=== PATIENT | female | born 1995 | race Caucasian/White ===

== ENCOUNTER → 2017-04-23 | Outpatient (CLI) | payer BC, OTHER ==
[~2017-04-23] MED LIST: BIRTH CONTROL
--- NOTE | 2017-04-23 15:59 | RAD ---
INDICATION: Pelvic pain and bleeding COMPARISON: None. TECHNIQUE: Grayscale and color ultrasound images uterus and adnexa. Transabdominal and transvaginal images obtained. FINDINGS: Uterus: 70 x 55 x 38 cm. Endometrial Stripe: 3 mm. Right Ovary: 25 x 25 x 19 cm. Flow Identified. Left Ovary: 28 x 20 x 20 cm. Flow Identified. There is some free fluid within the cul-de-sac. This is commonly seen in female patients. IMPRESSION: 1. Vascular flow seen to the bilateral ovaries. 2. Endometrial stripe is not thickened.
== END | disposition home or self-care (01) ==
LOC: US 14:41
PROVIDERS: ATTEND Obstetrics & Gynecology
DX: N93.9 Abnormal uterine and vaginal bleeding, unspecified (principal)
CPT/HCPCS: 76830; 76856

== ENCOUNTER 2017-09-21 23:28 | Emergency (ER) | payer BC ==
[~2017-09-21] VITALS: Ht 175.3 cm; Wt 66.7 kg
--- NOTE | 2017-09-21 23:34 | ED.ADGEN ---
Past History Past Medical History: Other Past Surgical History: Other Smoking: Non-smoker Alcohol Use: None Drug Use: None Adult General Chief Complaint Chief Complaint " I was working.. and display fell into me and I fell injuring my right wrist and hand.." HPI HPI Patient is a 22 year old female who presents with above hx and injury Rt wrist. Right wrist was first hyperextended as the display fell and then hyper flexed as she fell. Other injury reported. Distal neurovascular intact. Capillary refill less 2 seconds. Patient may have fractured this wrist previously. She is right-hand dominant. Range of motion exacerbated pain. Loading of thumb exacerbated pain Review of Systems Review of Systems Constitutional: Denies fever or chills [] Eyes: Denies change in visual acuity, redness, or eye pain [] HENT: Denies nasal congestion or sore throat [] Respiratory: Denies cough or shortness of breath [] Cardiovascular: No additional information not addressed in HPI [] GI: Denies abdominal pain, nausea, vomiting, bloody stools or diarrhea [] : Denies dysuria or hematuria [] Musculoskeletal: Denies back pain. Complaints of right wrist pain Integument: Denies rash or skin lesions [] Neurologic: Denies headache, focal weakness or sensory changes [] Endocrine: Denies polyuria or polydipsia [] All other systems were reviewed and found to be within normal limits, except as documented in this note. Family History Family History Noncontributory Current Medications Current Medications Current Medications Medications (Trade) Dose Ordered Sig/[place] Start Time Stop Time Status Last Admin Dose Admin Ibuprofen (Motrin) 600 mg 1X ONCE 09/22/17 01:00 09/22/17 01:34 DC 09/22/17 01:00 600 MG Allergies Allergies Allergies Coded Allergies Type Severity Reaction Last Updated Verified Latex, Natural Rubber Allergy Intermediate 08/09/14 Yes Physical Exam Physical Exam Constitutional: Well developed, well nourished,in acute distress, non-toxic appearance. [] HENT: Normocephalic, atraumatic, bilateral external ears normal, oropharynx moist, no oral exudates, nose normal. [] Eyes: PERRLA, EOMI, conjunctiva normal, no discharge. [] Neck: Normal range of motion, no tenderness, supple, no stridor. [] Cardiovascular:Heart rate regular rhythm, no murmur [] Lungs & Thorax: Bilateral breath sounds clear to auscultation [] Abdomen: Bowel sounds normal, soft, no tenderness, no masses, no pulsatile masses. [] Skin: Warm, dry, no erythema, no rash. [] Back: No tenderness, no CVA tenderness. [] Extremities: Right wrist and forearm tenderness, no cyanosis, no clubbing, ROM intact, right wrist edema. [] Neurologic: Alert and oriented X 3, normal motor function, normal sensory function, no focal deficits noted. [] Psychologic: Affect anxious, judgement normal, mood normal. [] EKG EKG [] Radiology/Procedures Radiology/Procedures My interpretation of forearm and wrist x-rays shows no obvious displaced fracture. Some mild edema of the wrist. It may be several disruption of the periosteum or findings of J joint changes from previous injury of The scaphoid[] Course & Med Decision Making Course & Med Decision Making Pertinent Labs and Imaging studies reviewed. (See chart for details) Ice, elevation, rest, splint, take Tylenol and ibuprofen for pain. For marked pain may take Vicoprofen. Follow-up primary care. Follow-up work comp. Consider re-x-ray in 2 weeks if still having pain for possible scaphoid fracture [] Final Impression Final Impression 1. Wrist sprain[] Problems: Dragon Disclaimer Dragon Disclaimer This electronic medical record was generated, in whole or in part, using a voice recognition dictation system. JESSICA JENSEN MD Sep 21, 2017 23:34
[2017-09-21 23:35] VITALS: BP 140/90
[2017-09-22] MEDS ORDERED: HYDR-79 PO (00:51)
[2017-09-22] MEDS ORDERED: IBUPROFEN 600 MG TABLET. PO ONE (01:00)
--- NOTE | 2017-09-22 09:15 | RAD ---
2 views right forearm 09/22/2017 Clinical indication: Fall with right arm pain. Comparison: None. Findings: No acute fracture or traumatic malalignment of the ulnar and radial diaphyses. Soft tissues are unremarkable. Impression: No acute osseous abdomen.
--- NOTE | 2017-09-22 09:17 | RAD ---
3 views right wrist radiograph 09/22/2017 Clinical indication: Fall with right wrist pain. History of wrist dislocations. Comparison: Right wrist radiograph 07/18/2015. Findings: No acute fracture or traumatic malalignment. Joint spaces are maintained. Distal radius and ulna are intact. Soft tissues are unremarkable. Impression: No acute osseous abnormality.
--- NOTE | 2017-09-22 09:43 | RAD ---
3 view right hand 09/21/2017 Clinical indication: Fall. Comparison: Right hand radiograph 06/08/2013. Findings: The fifth finger is held in flexion which limits evaluation. No evidence of acute fracture or traumatic malalignment of the first through fourth digits. There is a stable dense sclerotic lesion at the third metacarpal head, may represent a benign enostosis. Impression: 1. Fifth finger is held in flexion throughout the examination which significantly limits bony detail and subluxation/dislocation cannot be excluded. If clinically indicated, fifth digit radiographs are recommended. 2. Otherwise no evidence of acute right hand fracture. These results were discussed with Dr. Arroyo of the emergency service by telephone at 9:40am 09/22/[address] Ravindra Todd
== END 2017-09-22 02:10 | disposition home or self-care (01) ==
LOC: ER 23:28
DX: S63.501A Unspecified sprain of right wrist, initial encounter (principal); Z91.040 Latex allergy status; W19.XXXA Unspecified fall, initial encounter; Y93.89 Activity, other specified; Y99.8 Other external cause status; Y92.89 Other specified places as the place of occurrence of the external cause
CPT/HCPCS: 29125; 73090; 73110; 73130; 99284-25

== ENCOUNTER 2017-09-23 21:07 | Emergency (ER) | payer BC ==
[~2017-09-23] VITALS: Ht 175.3 cm; Wt 66.7 kg
[~2017-09-23 21:07] MED LIST changes: +HYDR-79 PO
[2017-09-23 21:21] VITALS: BP 131/70
[2017-09-23] MEDS ORDERED: ONDANSETRON ODT 4 MG TAB.RAPDIS PO ONE (22:30)
[2017-09-23] MEDS ORDERED: HYDROmorphone PF 1 MG/ML DISP.SYRIN IM ONE (22:30)
--- NOTE | 2017-09-23 23:14 | PHYS DOC ---
Past History Past Medical History: No Pertinent History, Other Past Surgical History: Other Smoking: Non-smoker Alcohol Use: None Drug Use: None Adult General Chief Complaint Chief Complaint: UPPER EXTREMITY INJURY HPI HPI Patient is a [age] year old [sex] who presents with [] Review of Systems Review of Systems Constitutional: Denies fever or chills [] Eyes: Denies change in visual acuity, redness, or eye pain [] HENT: Denies nasal congestion or sore throat [] Respiratory: Denies cough or shortness of breath [] Cardiovascular: No additional information not addressed in HPI [] GI: Denies abdominal pain, nausea, vomiting, bloody stools or diarrhea [] : Denies dysuria or hematuria [] Musculoskeletal: Denies back pain or joint pain [] Integument: Denies rash or skin lesions [] Neurologic: Denies headache, focal weakness or sensory changes [] Endocrine: Denies polyuria or polydipsia [] All other systems were reviewed and found to be within normal limits, except as documented in this note. Current Medications Current Medications Current Medications Medications (Trade) Dose Ordered Sig/[place] Start Time Stop Time Status Last Admin Dose Admin Hydromorphone HCl (Dilaudid) 1 mg 1X ONCE 09/23/17 22:30 09/23/17 22:31 DC Ondansetron HCl (Zofran Odt) 4 mg 1X ONCE 09/23/17 22:30 09/23/17 22:31 DC Allergies Allergies Allergies Coded Allergies Type Severity Reaction Last Updated Verified Latex, Natural Rubber Allergy Intermediate 08/09/14 Yes Physical Exam Physical Exam Constitutional: Well developed, well nourished, no acute distress, non-toxic appearance. [] HENT: Normocephalic, atraumatic, bilateral external ears normal, oropharynx moist, no oral exudates, nose normal. [] Eyes: PERRLA, EOMI, conjunctiva normal, no discharge. [] Neck: Normal range of motion, no tenderness, supple, no stridor. [] Cardiovascular:Heart rate regular rhythm, no murmur [] Lungs & Thorax: Bilateral breath sounds clear to auscultation [] Abdomen: Bowel sounds normal, soft, no tenderness, no masses, no pulsatile masses. [] Skin: Warm, dry, no erythema, no rash. [] Back: No tenderness, no CVA tenderness. [] Extremities: No tenderness, no cyanosis, no clubbing, ROM intact, no edema. [] Neurologic: Alert and oriented X 3, normal motor function, normal sensory function, no focal deficits noted. [] Psychologic: Affect normal, judgement normal, mood normal. [] Current Patient Data Vital Signs Vital Signs Date Time Temp Pulse Resp B/P (MAP) Pulse Ox O2 Delivery O2 Flow Rate FiO2 09/23/17 21:21 97.9 87 16 96 Room Air EKG EKG [] Radiology/Procedures Radiology/Procedures [] Course & Med Decision Making Course & Med Decision Making Pertinent Labs and Imaging studies reviewed. (See chart for details) [] Dragon Disclaimer Dragon Disclaimer This electronic medical record was generated, in whole or in part, using a voice recognition dictation system. Departure Departure: Impression: Primary Impression: Right wrist sprain Disposition: 01 HOME, SELF-CARE Condition: IMPROVED Referrals: MAGALI OVERTON (PCP) Patient Instructions: Wrist Sprain with [facility] Additional Instructions: Your x-rays did not reveal any fracture to her wrist or hand. Please make an appointment to see her workman's comp doctor's for further evaluation and management of your injury. Continue taking her pain medicines at home. KIMBERLY DON MD Sep 23, 2017 23:14
--- NOTE | 2017-09-24 08:03 | RAD ---
Hand x-rays Indication: Trauma to the right hand and wrist. Technique: 3 views of the right hand Comparison: Plain films from 09/22/2017. Findings: No acute fracture or dislocation. No soft tissue abnormality. No arthritic process. Impression: No acute findings.
--- NOTE | 2017-09-24 08:04 | RAD ---
Indication: Trauma Technique: 3 views of the right wrist Comparison: Previous study from 09/22/2017 Findings: No acute fracture or dislocation. No soft tissue abnormality. Impression: As above.
== END 2017-09-23 23:34 | disposition home or self-care (01) ==
LOC: ER 21:07
DX: S63.501A Unspecified sprain of right wrist, initial encounter (principal); Z91.040 Latex allergy status; X58.XXXA Exposure to other specified factors, initial encounter; Y93.9 Activity, unspecified; Y99.8 Other external cause status; Y92.89 Other specified places as the place of occurrence of the external cause
CPT/HCPCS: 73110; 73130; 99284